=== PATIENT | female | born 1940 | race Caucasian/White ===

== ENCOUNTER → 2016-11-21 | Outpatient (CLI) | payer MEDICARE | END | disposition home or self-care (01) | LOC: CFH 13:28 | PROVIDERS: ATTEND Family Medicine | DX: Z12.31 Encounter for screening mammogram for malignant neoplasm of breast (principal); M85.88 Other specified disorders of bone density and structure, other site; N95.9 Unspecified menopausal and perimenopausal disorder; Z92.3 Personal history of irradiation; Z85.3 Personal history of malignant neoplasm of breast; Z90.12 Acquired absence of left breast and nipple | CPT/HCPCS: 77080; G0202 ==

== ENCOUNTER → 2018-05-08 | Outpatient (CLI) | payer MEDICARE ==
[~2018-05-08] MED LIST: AMLO10TA6 PO; INSU300I SQ; LISI1TAB5 PO; METF500T27 PO; PIOG30TA67 PO
[2018-05-08 13:11] LABS: CREATININE 1.39 mg/dL (0.55-1.02)
== END | disposition home or self-care (01) ==
LOC: RAD 12:08
PROVIDERS: ATTEND Podiatrist
DX: M79.671 Pain in right foot (principal); E11.9 Type 2 diabetes mellitus without complications
CPT/HCPCS: 36415; 82565